=== PATIENT | female | born 1970 | race Caucasian/White ===

== ENCOUNTER 2017-05-28 01:02 | Inpatient (IN) | payer BC ==
[2017-05-28] MEDS ORDERED: methylPREDNISolone 125 MG* 2 ML VIAL IV ONE (01:28)
[2017-05-28] MEDS ORDERED: Albuterol/Ipratropium NEB.SOL* Albuterol 2.5 MG/Ipratropium 0.5 MG 3 ML INH ONE (01:28)
[2017-05-28] MEDS ORDERED: methylPREDNISolone 125 MG* 2 ML VIAL ONE (01:30)
[2017-05-28 01:44] LABS: Hematocrit 25 % (35-47); Hemoglobin 7.2 g/dl (12.0-16.0); Mean Corpuscular HGB Conc 29 g/dl (31-36); Mean Corpuscular Hemoglobin 17 pg (27-31); Mean Corpuscular Volume 58 fL (80-97); Mean Platelet Volume 8 um3 (7.4-10.4); Red Cell Distribution Width 20 % (10.5-15); White Blood Count 13.7 10^3/ul (3.5-10.8)
[2017-05-28 01:45] LABS: Add Diff/Slide Review? Slide Review Added; Comments Flag Yes
[2017-05-28 01:53] LABS: ALT 8 U/L (7-52); AST 13 U/L (13-39); Albumin 3.9 g/dL (3.2-5.2); Alkaline Phosphatase 60 U/L (34-104); Anion Gap 8 mmol/L (2-11); Blood Urea Nitrogen 20 mg/dL (6-24); CO2 Carbon Dioxide 21 mmol/L (22-32); Calcium 8.8 mg/dL (8.6-10.3); Chloride 108 mmol/L (101-111); Creatine Kinase 40 U/L (10-223); EGFR African American 109.6 (>60); EGFR Non-African American 85.3 (>60); Globulin 3.2 g/dL (2-4); Glucose 160 mg/dL (70-100); Magnesium 1.9 mg/dL (1.9-2.7); Potassium 3.5 mmol/L (3.5-5.0); Sodium 137 mmol/L (133-145); Total Protein 7.1 g/dL (6.4-8.9)
[2017-05-28 01:55] LABS: Troponin I 0.28 ng/mL (<0.04)
[2017-05-28 02:08] LABS: Add Path Review? YES; Hypochromasia 2+; Microcytosis 3+; Polychromasia 1+
[2017-05-28] MEDS ORDERED: Aspirin TAB* 325 MG PO ONE (02:20)
--- NOTE | 2017-05-28 02:43 | HP ---
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 Sunday she worked [employer] on 3rd floor of [facility]. On the way into the building she had to stop and rest in the Dr's lounge 2nd SOB and on the way out she had to stop and rest 3 times. After arriving at home her SOB and chest discomfort continued at rest and became associated with nausea and diphoresis prompting her to present for evaluation. She admits to becoming light-headed and woozy with standing, but denies palpitations, F/C, cough, congestion, or other issues. She had flown to [place] in April and had a "Colin horse" in her L calf lasting ~1week, but without swelling or erythema. Additionally, she has had multiple prolonged sitting events lasting >6hours over the past 6 weeks. Of note, her father passed at 43 from previously unknown CAD. She is awaiting CTA chest to r/o PE, if negative this will constitute an NSTEMI. Therefore, heparin GTT will be started now as it is TX in either case. PMedHx asthma GERD seasonal allergies Ambulatory Orders Albuterol inh POWDER (NF) [Proair Respiclick] 108 mcg IN Q4H PRN 05/28/17 Cyanocobalamin [Vitamin B-12] 1,000 mcg SL DAILY 05/28/17 Esomeprazole(NF) [NEXium(NF)] 20 mg PO DAILY 05/28/17 Fexofenadine (NF) [Galina 180 (NF)] 180 mg PO DAILY 05/28/17 Fluticasone HFA 110 mcg(NF) [Flovent HFA 110 mcg(NF)] 2 puff INH BID 05/28/17 Fluticasone NASAL * [Flonase *] 2 spray BOTH NARES DAILY 05/28/17 Allergies Latex Allergy (Verified 05/28/17 01:03) Itching Penicillins Allergy (Verified 05/28/17 01:03) Anaphylatic Shock PSurgHx wisdom teeth extraction SocHx: no tobacco or recreational drug HX, 1-2 alcoholic drinks weekly; vegetarian x years, vegan x recent months; single, no children; 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[employer]; 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 FamHx: Mother: alive, healthy, 72YO; Father: 43YO from previously unknown CAD; Siblings: only child; mGM: 91 2nd GI bleed, HX CVA & late onset CAD; mGF: 80s 2nd CKD; pGM: 80s 2nd CAD; pGF: 91 2nd AAA ROS: as above, otherwise reviewed and all were negative vitals: Vital Signs Temp 36.1 C 05/28/17 01:04 Pulse 113 05/28/17 02:42 Resp 19 05/28/17 02:42 BP 115/67 05/28/17 03:00 Pulse Ox 93 05/28/17 02:42 Intake & Output 05/27/17 05/27/17 05/28/17 11:59 23:59 11:59 Weight 108.862 kg Constitutional: NAD, normally developed, BMI 38 white female HEENM: atraumatic; sclera/conjunctiva: non-icteric/clear; hearing: clinically intact; oropharynx: clear, mucosa moist Neck: soft tissue: non-tender; thyroid: normal Pulmonary: clear to auscultation bilaterally, good aeration, no accessory muscle use CV: RR/RR, normal S1S2, no carotid bruit, no jugular venous distention, 2+ B DP/ PT, no edema Abdominal: soft, non-distended, non-tender, no rebound/guarding/rigidity, normoactive bowel sounds, no hepatosplenomegaly or masses, no costovertebral angle tenderness Musculoskeletal: general: grossly intact, no palpable tenderness, negative Cynthia 's B Integumental: normal appearance and texture of exposed skin Psychiatric orientation: AA&O to PPS affect: calm mood: pleasant eye contact: good content: reliable responses: timely insight: good Testing: Lab Results 05/28/17 05/28/17 05/28/17 Range/Units 01:25 01:25 01:25 WBC 13.7 H (3.5-10.8) 10^3/ul RBC 4.30 (4.0-5.4) 10^6/ul Hgb 7.2 L (12.0-16.0) g/dl Hct 25 L (35-47) % MCV 58 L (80-97) fL MCH 17 L (27-31) pg MCHC 29 L (31-36) g/dl RDW 20 H (10.5-15) % Plt Count 287 (150-450) 10^3/ul MPV 8 (7.4-10.4) um3 Neut % (Auto) 78.9 (38-83) % Lymph % (Auto) 13.9 L (25-47) % Swisher % (Auto) 5.6 (1-9) % Eos % (Auto) 0.9 (0-6) % Baso % (Auto) 0.7 (0-2) % Absolute Neuts (auto) 10.8 H (1.5-7.7) 10^3/ul Absolute Lymphs (auto) 1.9 (1.0-4.8) 10^3/ul Absolute Monos (auto) 0.8 (0-0.8) 10^3/ul Absolute Eos (auto) 0.1 (0-0.6) 10^3/ul Absolute Basos (auto) 0.1 (0-0.2) 10^3/ul Absolute Nucleated RBC 0.03 10^3/ul Nucleated RBC % 0.2 Normal RBC Morphology Not Reportable Polychromasia 1+ Hypochromasia 2+ Microcytosis 3+ Elliptocytes 1+ Hem Pathologist Commnt Pending INR (Anticoag Therapy) (0.89-1.11) APTT (26.0-36.3) seconds D-Dimer, Quantitative (Less Than 230) ng/mL Sodium 137 (133-145) mmol/L Potassium 3.5 (3.5-5.0) mmol/L Chloride 108 (101-111) mmol/L Carbon Dioxide 21 L (22-32) mmol/L Anion Gap 8 (2-11) mmol/L BUN 20 (6-24) mg/dL Creatinine 0.74 (0.51-0.95) mg/dL Est GFR ( Amer) 109.6 (>60) Est GFR (Non-Af Amer) 85.3 (>60) BUN/Creatinine Ratio 27.0 H (8-20) Glucose 160 H (70-100) mg/dL Lactic Acid (0.5-2.0) mmol/L Calcium 8.8 (8.6-10.3) mg/dL Magnesium 1.9 (1.9-2.7) mg/dL Total Bilirubin 0.40 (0.2-1.0) mg/dL AST 13 (13-39) U/L ALT 8 (7-52) U/L Alkaline Phosphatase 60 (34-104) U/L Total Creatine Kinase 40 (10-223) U/L Troponin I 0.28 H* (<0.04) ng/mL B-Natriuretic Peptide 401 H ( - 100) pg/mL Total Protein 7.1 (6.4-8.9) g/dL Albumin 3.9 (3.2-5.2) g/dL Globulin 3.2 (2-4) g/dL Albumin/Globulin Ratio 1.2 (1-3) TSH 2.50 (0.34-5.60) mcIU/mL Beta HCG, Quant < 0.60 mIU/mL Blood Type Antibody Screen Crossmatch 05/28/17 05/28/17 05/28/17 Range/Units 01:25 01:25 01:25 WBC (3.5-10.8) 10^3/ul RBC (4.0-5.4) 10^6/ul Hgb (12.0-16.0) g/dl Hct (35-47) % MCV (80-97) fL MCH (27-31) pg MCHC (31-36) g/dl RDW (10.5-15) % Plt Count (150-450) 10^3/ul MPV (7.4-10.4) um3 Neut % (Auto) (38-83) % Lymph % (Auto) (25-47) % Swisher % (Auto) (1-9) % Eos % (Auto) (0-6) % Baso % (Auto) (0-2) % Absolute Neuts (auto) (1.5-7.7) 10^3/ul Absolute Lymphs (auto) (1.0-4.8) 10^3/ul Absolute Monos (auto) (0-0.8) 10^3/ul Absolute Eos (auto) (0-0.6) 10^3/ul Absolute Basos (auto) (0-0.2) 10^3/ul Absolute Nucleated RBC 10^3/ul Nucleated RBC % Normal RBC Morphology Polychromasia Hypochromasia Microcytosis Elliptocytes Hem Pathologist Commnt INR (Anticoag Therapy) 1.05 (0.89-1.11) APTT 25.7 L (26.0-36.3) seconds D-Dimer, Quantitative 689 H (Less Than 230) ng/mL Sodium (133-145) mmol/L Potassium (3.5-5.0) mmol/L Chloride (101-111) mmol/L Carbon Dioxide (22-32) mmol/L Anion Gap (2-11) mmol/L BUN (6-24) mg/dL Creatinine (0.51-0.95) mg/dL Est GFR ( Amer) (>60) Est GFR (Non-Af Amer) (>60) BUN/Creatinine Ratio (8-20) Glucose (70-100) mg/dL Lactic Acid 2.1 H* (0.5-2.0) mmol/L Calcium (8.6-10.3) mg/dL Magnesium (1.9-2.7) mg/dL Total Bilirubin (0.2-1.0) mg/dL AST (13-39) U/L ALT (7-52) U/L Alkaline Phosphatase (34-104) U/L Total Creatine Kinase (10-223) U/L Troponin I (<0.04) ng/mL B-Natriuretic Peptide ( - 100) pg/mL Total Protein (6.4-8.9) g/dL Albumin (3.2-5.2) g/dL Globulin (2-4) g/dL Albumin/Globulin Ratio (1-3) TSH (0.34-5.60) mcIU/mL Beta HCG, Quant mIU/mL Blood Type O Positive Antibody Screen Negative Crossmatch See Detail ECG, personally reviewed: sinus tachycardia rate 114, Q-wave & inverted T-wave in III, ST depression & T-wave flattening V5-6 & I, T-wave inversions V3-4 & III CXR, personally reviewed: prominant central pulmonary vasulature with cephalization CTA chest, personally reviewed: moderate sized B segmental/subsegmental PEs; final report pending Impression: 46F presenting with SOB, chest pain, nausea, & sweats found to have moderate B pulmonary emboli; incidental finding of marked microcytic anemia w/o bleeding HX DIAGNOSIS & PLAN Primary B pulmonary emboli : heparin GTT due to undiagnosed source of microcytic anemia to allow for rapid reversal, if needed : convert to PO agent when appropriate; patient considering warfarin vs NOAC : supplemental oxygen : pain control PRN : BLE US in AM : ECHO in AM to evaluate R heart : supportive care marked microcytic anemia : stool occult blood negative : anemia labs : transfuse 2 units pRBCs : trend : GI consult in AM Secondary asthma : albuterol neb PRN GERD : PO omeprazole Admission Rational: inpatient ICU for moderate B pulmonary emboli & previously unknown microcytic anemia DVTp: heparin GTT Code Status: full
[2017-05-28] MEDS ORDERED: Heparin DRIP 25,000 UNITS(*) 25,000 UNITS/500 ML BAG ONE (03:30)
[2017-05-28] MEDS ORDERED: Heparin VIAL(*) 5000 UNITS/ML VIAL (FIVE THOUSAND) ONE (03:32)
[2017-05-28] MEDS: Heparin VIAL(*) 5000 UNITS/ML VIAL (FIVE THOUSAND) IV SCH ×2 (03:37→12:12)
[2017-05-28] MEDS: Heparin DRIP 25,000 UNITS(*) 25,000 UNITS/500 ML BAG IVPB SCH ×3 (03:38→20:03)
[2017-05-28] MEDS ORDERED: Iohexol 350* (CONTRAST) 500 ML MDV IV ONE (04:17)
[2017-05-28] MEDS ORDERED: oxyCODONE TAB* 5 MG TAB PO PRN (05:08)
[2017-05-28] MEDS ORDERED: Ondansetron INJ* 2 MG/ML VIAL IV PRN (05:08)
[2017-05-28] MEDS ORDERED: HYDROmorphone INJ* 2 MG/ML CARPUJECT SYRINGE IV PRN (05:08)
[2017-05-28] MEDS ORDERED: Melatonin (NF) 3 MG TAB PO PRN (05:08)
[2017-05-28] MEDS ORDERED: Albuterol 2.5 MG/3 ML NEB.SOL* (0.083%) INH PRN (05:08)
[2017-05-28] MEDS ORDERED: traMADol TAB* 50 MG PO PRN (05:13)
[2017-05-28] MEDS ORDERED: NS 0.9% 1000 ML* 1,000 ML IV SCH (05:15)
[2017-05-28 05:17] LABS: Troponin I 0.3 ng/mL (<0.04)
--- NOTE | 2017-05-28 05:18 | ED ---
Victor Manuel Renteria Rebecca, scribed for Zeke Vera on 05/28/17 at 0111 . Shortness of Breath - HPI Summary HPI Summary: Pt is a 46 y/o F who presents to ED c/o SOB. Sx began 1 week ago and have been gradually worsening, significantly worse tonight. Initially, SOB was characterized as dyspnea at exertion and upon waking up this morning, it is described as dyspnea at rest. 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 Sx aggravated by exertion, alleviated by nothing. Additionally c/o productive cough with slight sputum, chest wall pain secondary to labored breathing and nausea. Notes L calf pain described as a cramp about 1 week ago that is now resolved that began after walking around [facility] all day. Denies abdominal pain. O2 sat was between 89 and 91 upon arrival whereas last week it was 94-96. PMHx asthma. FHx CAD ( father passed at age 43). - History of Current Complaint Chief Complaint: EDShortnessOfBreath Time Seen by Provider: 05/28/17 01:10 Hx Obtained From: Patient Onset/Duration: Lasting Weeks - 1 week, Still Present Dyspnea At: Rest Aggrevating Factors: Nothing Alleviating Factors: Nothing Associated Signs & Symptoms: Cough (Productive), Chest Pain Unrelated to Cough - seocndary to labored breathing - Allergy/Home Medications Allergies/Adverse Reactions: Allergies Allergy/AdvReac Type Severity Reaction Status Date / Time Latex Allergy Itching Verified 05/28/17 01:03 Penicillins Allergy Anaphylatic Verified 05/28/17 01:03 Shock Home Medications: Home Medications Albuterol inh POWDER (NF) [Proair Respiclick] 108 mcg IN Q4H PRN 05/28/17 [ History Confirmed 05/28/17] Cyanocobalamin [Vitamin B-12] 1,000 mcg SL DAILY 05/28/17 [History Confirmed 05/06] Esomeprazole(NF) [NEXium(NF)] 20 mg PO DAILY 05/28/17 [History Confirmed ] Fexofenadine (NF) [Galina 180 (NF)] 180 mg PO DAILY 05/28/17 [History Confirmed 05/28/17] Fluticasone HFA 110 mcg(NF) [Flovent HFA 110 mcg(NF)] 2 puff INH BID 05/28/17 [ History Confirmed 05/28/17] Fluticasone NASAL * [Flonase *] 2 spray BOTH NARES DAILY 05/28/17 [History Confirmed 05/28/17] PMH/Surg Hx/FS Hx/Imm Hx Endocrine/Hematology History: Denies: Hx Anemia Respiratory History: Reports: Hx Asthma - Cancer History Hx Chemotherapy: No Hx Radiation Therapy: No Infectious Disease History: No Infectious Disease History: Reports: Traveled Outside the in Last 30 Days - [place] last month - Family History Known Family History: Positive: Cardiac Disease - father - Social History Alcohol Use: None Substance Use Type: Reports: None Smoking Status (MU): Never Smoked Tobacco Review of Systems Positive: Chest Pain - secondary to labored breathing Positive: Shortness Of Breath, Cough - productive Positive: Nausea. Negative: Abdominal Pain Positive: Other - L calf cramp - resolved All Other Systems Reviewed And Are Negative: Yes Physical Exam - Summary Physical Exam Summary: Appearance: Well appearing, no pain distress Skin: warm, dry, reflects adequate perfusion Head/face: normal Eyes: EOMI, ALEXANDRE ENT: normal Neck: supple, nontender Respiratory: CTA, breath sounds present, decreased breath sounds bilaterally Cardiovascular: tachycardic, pulses symmetrical Abdomen: nontender, soft Bowel: present Musculoskeletal: normal, strength/ROM intact Neuro: normal, sensory motor intact, A&Ox3 Triage Information Reviewed: Yes Vital Signs On Initial Exam: Initial Vitals Temp Pulse Resp BP Pulse Ox 96.9 F 114 22 144/94 90 05/28/17 01:04 05/28/17 01:04 05/28/17 01:04 05/28/17 01:04 05/28/17 01:04 Vital Signs Reviewed: Yes Diagnostics - Vital Signs Vital Signs Temp Pulse Resp BP Pulse Ox 05/28/17 01:04 96.9 F 114 22 144/94 90 - Laboratory Result Diagrams: 05/28/17 01:25 05/28/17 04:45 Lab Statement: Any lab studies that have been ordered have been reviewed, and results considered in the medical decision making process. - Radiology CXR Xray Interpretation: No Acute Changes Radiology Interpretation Completed By: ED Physician - CT Chest/Thorax CTA CT Interpretation: Positive (See Comments) - Positive for multiple bilateral acute pulmonary emboli involving vessels to all lobes. There is also involvement of the distal right and left pulmonary arteries but no saddle emboli are identified. There is patchy infiltrate in the posterior aspect of the left upper lobe. The remainder of the lungs are clear. The right heart is somewhat enlarged possibly indicating right heart strain. Negative for thoracic aortic aneurysm or dissection. ED physician reviewed radiology report and agrees. CT Interpretation Completed By: Radiologist - EKG 0205 Cardiac Rate: Tachycardia - 114 bpm EKG Rhythm: Sinus Tachycardia ST Segment: Non-Specific - Non-specific ST T wave changes Course/Dx - Course Assessment/Plan: Pt is a 46 y/o F who presents to ED c/o SOB. Sx began 1 week ago and have been gradually worsening, significantly worse tonight. Initially, SOB was characterized as dyspnea at exertion and upon waking up this morning, it is described as dyspnea at rest. 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 Sx aggravated by exertion, alleviated by nothing. Additionally c/o productive cough with slight sputum, chest wall pain secondary to labored breathing and nausea. Notes L calf pain described as a cramp about 1 week ago that is now resolved that began after walking around [facility] all day. Denies abdominal pain. O2 sat was between 89 and 91 upon arrival whereas last week it was 94-96. PMHx asthma. FHx CAD (father passed at age 43). CXR reveals no acute findings, as read by ED physician. EKG is sinus tachy with non-specific ST T wave changes. CTA Chest/ Thorax reveals multiple pulmonary emboli. D-Dimer of 689, lactic acid of 2.1, troponin of 0.28, Hgb of 7.2. In the ED course, pt received Solu-Medrol, ASA and Duoneb Tx. Discussed care of pt with Dr. Otoole who accepts pt for admission. Pt will be admitted with Dx of pulmonary embolism, symptomatic anemia , ACS, dyspnea and asthma. CC time of 30 minutes. Allergies noted. Elevated BP noted. - Diagnoses Provider Diagnoses: Symptomatic anemia, Dyspnea, ACS (acute coronary syndrome), Asthma, Pulmonary embolism - Physician Notifications Discussed Care of Patient With: Alin Otoole Time Discussed With Above Provider: 02:17 Instructed by Provider To: Other - Advised a Chest CTA and accepted the pt. Will evaluate her in the ED. - Critical Care Time Critical Care Time: 30-74 min - 30 minutes Discharge - Discharge Plan Condition: Stable Disposition: ADMITTED TO [facility] The documentation as recorded by the Victor Manuel pettit Rebecca accurately reflects the service I personally performed and the decisions made by , Zkee Vera.
[2017-05-28 05:40] LABS: Iron 15 ug/dL (50-212); Total Iron Binding Capacity 493 mcg/dL (250-450); Transferrin 352 mg/dL (203-362)
[2017-05-28 05:48] LABS: Corrected Retic Count 1.1 % (0.5-1.5); Immature Retic Fraction 0.62
[2017-05-28 05:49] LABS: Comments Flag Yes
[2017-05-28 06:01] LABS: Ferritin < 10.0 ng/mL (11-307)
[2017-05-28] MEDS: Omeprazole CAP* 20 MG PO SCH (06:01)
[2017-05-28 06:05] LABS: Folate 17.48 ng/mL (>3.99)
[2017-05-28 06:06] LABS: Vitamin B12 568 pg/mL (180-914)
--- NOTE | 2017-05-28 07:55 | RAD ---
HISTORY: Shortness of breath COMPARISONS: None VIEWS: 1: frontal portable view of the chest at 2:18 PM FINDINGS: LINES AND TUBES: None. CARDIOMEDIASTINAL SILHOUETTE: The cardiomediastinal silhouette is normal for portable technique. PLEURA: The costophrenic angles are sharp. No pleural abnormalities are noted. LUNG PARENCHYMA: The lungs are clear. ABDOMEN: The upper abdomen is clear. There is no subphrenic gas. BONES AND SOFT TISSUES: No bone or soft tissue abnormalities are noted. IMPRESSION: NO ACTIVE CARDIOPULMONARY DISEASE.
--- NOTE | 2017-05-28 08:05 | RAD ---
INDICATION: Chest pain and shortness of breath with an elevated d-dimer COMPARISON: None TECHNIQUE: Axial source images were acquired following the administration of 84 mL Omnipaque [address] angiographic technique. Coronal and sagittal reconstructed images were constructed and reviewed. FINDINGS: Involving all lobar branches and majority segmental branches there are both obstructing and nonobstructing thrombi consistent with pulmonary embolus. On the right the pulmonary embolism extends as far as the right mainstem pulmonary artery. There are no focal infiltrates or effusions. There are no pulmonary parenchymal masses. Relative widening of the right ventricle could indicate a degree of right heart strain in the presence of multifocal pulmonary emboli. There is no mediastinal, hilar, or axillary lymphadenopathy. Degenerative changes of the thoracic spine includes loss of intervertebral disc height with vacuum disc phenomenon and endplate sclerosis at T9/T10. Limited views of the upper abdomen show no abnormalities. IMPRESSION: Bilateral multi lobar pulmonary embolism extending to the mainstem pulmonary artery on the right. Widening of the right ventricle in this setting could be secondary to right heart strain.
--- NOTE | 2017-05-28 09:13 | PN ---
Critical Care Services: [facility] progress note 05/28/17 Pt seen and examined at bedside. Denies SOB, chest discomfort is improved. 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 CTA chest positive for b/l PE with filling defects in Rt main stem and to subsegmental level and lt pulm artery. She was also noted to have elevated troponins. She was started on heparin drip. She was also noted to have microcytic anemia with no active bleeding. 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, No tobacco or recreational drug use, 1-2 alcoholic drinks weekly FamHx: Mother: alive, healthy, Father: due to CAD at age 43 ROS: as above, otherwise reviewed and all were negative Vital Signs: Temp Pulse Resp BP SpO2 FiO2 98.4 F 99 22 135/90 93 05/28/17 04:14 05/28/17 08:00 05/28/17 08:00 05/28/17 08:00 05/28/17 08:00 Physical Exam: O/E: Gen: Pt in NAD HEENT: PERRLA, sclera anicteric,oropharynx: mucosa moist Neck: supple, non-tender; thyroid: normal Pulmonary: clear to auscultation bilaterally, good aeration, no accessory muscle use CV: RRR, normal S1S2, no carotid bruit, no jugular venous distention Abdominal: Soft, non-distended, non-tender, normoactive bowel sounds Musculoskeletal: general: grossly intact, no palpable tenderness, negative Cynthia 's B Integumental: normal appearance and texture of exposed skin Psychiatric : Good affect Fluid Balance (Past 24 Hours): I= 500 O= 500 Net 0 Intake & Output 05/26/17 05/27/17 05/28/17 05/29/17 06:59 06:59 06:59 06:59 Output Total 500 Balance -500 Weight 238 lb 1.588 oz Output: Urine 500 Labs: Laboratory Results - last 24 hr 05/28/17 05/28/17 05/28/17 04:45 05:30 05:30 RBC (Retic) 4.18 L HCT (Retic) 24 L Retic Count, Calc 2.0 H Corrected Retic Count 1.1 Retic Shift Factor 2.0 Retic Production Index 0.60 Immature Retic Fraction 0.62 Mean Retic Volume 93.0 BUN 17 Lactic Acid 1.7 Troponin I 0.30 H* Studies: CTA chest was personally reviewed, B/l filling defects involving Rt main stem, segmental and lobar branches on both sides, no pulm infarct noted ECHO: pending EKG: Sinus tachycardia with T- wave changes in inferior leads Venous duplex- pending Impression: 46 y o f with acute b/l PE with significant clot burden and possible Rt heart strain, hemodynamically stable on heparin drip. 1. Acute PE likely provoked from recent air travel 2. Microcytic anemia, unknown etiology 3.Tachycardia due to rt heart strain from PE 4. Elevated troponins secondary tot PE 5. Elevated lactate, normalized Plan: 1. CVS: Acute PE with significant clot burden and rt heart strain. Will obtain ECHO, no need for tPA at this time. Given anemia, started on heparin drip, will rpt PTT at 10:30, will decide on long term care phlebotomist anticoagulation. f/u PTT. Monitor cardiac status closely in ICU. Elevated troponins and EKG changes sec to PE. Will administer tPA if becomes unstable hemodynamically 2. Resp: Not in resp distress. Will adminsiter high flow if any distress 3. Haem: Acute PE likely provoked from recent air travel, in need of anticoagulation for 6 months. c/w heparin and will decide regarding long term care phlebotomist anticoagulation in conjunction with pt. Anemia- microcytic, unclear etiology. Might benefit from haem eval as out pt 4.Endo: No issues 5. Musculo skeletal: Pt reported having discomfort in LE recently after travel. Will obtain LE dopplers 6. GI: c/w regular diet, GI consult today for w/u of anemia, stool guiac negative 7. Renal: Voiding spontaneously, no electrolyte abnormalities 8. Psycho social: Pt with good understanding of disease process. Updated on tests and treatment indication Supporive care and preventive care as ordered DVTpx: On heparin IV for PE Critical Care Time: 30 min
--- NOTE | 2017-05-28 09:42 | RAD ---
INDICATION: Pain and swelling. Pulmonary embolus. COMPARISON: CTA chest May 28, 2017 TECHNIQUE: Duplex interrogation of the Lowerextremity was performed. FINDINGS: Deep veins: The common femoral, great saphenous, profunda femoris, proximal, mid, and distal deep femoral, popliteal, posterior tibial, and peroneal veins were interrogated. There is thrombus in the left posterior tibial and peroneal veins. The remaining deep venous structures demonstrate normal compressibility, augmentation, and phasic flow. Superficial veins: There are no findings of superficial thrombophlebitis. Popliteal fossa:There is no evidence of a popliteal cyst. Soft tissues:There are no soft tissue abnormalities. IMPRESSION: ACUTE, LEFT-SIDED, TIBIAL DEEP VENOUS THROMBOSIS
[2017-05-28] MEDS: Metoprolol Tartrate TAB* 25 MG PO SCH ×2 (10:16→21:05)
[2017-05-28] MEDS: Docusate CAP* 100 MG PO SCH ×2 (10:16→21:05)
--- NOTE | 2017-05-28 10:26 | ECHO ---
Patient: KEIKO WEN [facility] Rec#: [id number] : 1970 Date: 05/28/2017 Age: 46y Height: 167.6 cm / 66.0 in Weight: 108.9 kg / 240.0 lbs Sex: F BSA: 2.2 Room#: ICU 10 Admit Date#: 05/28/2017 Type: Inpatient Referring: Alin Otoole MD Reading: Ba Dodge MD Senior Software Tester: Blaire Ribeiro RN RDCS CC: Christi Ferris NP Transthoracic Echocardiogram Indication: Bilateral PE, elevated troponin BP: 124/89 HR: 99 Rhythm: NSR Findings History: Asthma, GERD Technical Comments: The study quality is fair. The study is technically limited due to patient body habitus. Completed at 0845. Left Ventricle: The left ventricular chamber size is normal. Mild to moderate concentric left ventricular hypertrophy is observed. Global left ventricular wall motion and contractility are within normal limits. There is normal left ventricular systolic function. The estimated ejection fraction is 55-60%. There is septal flattening of the interventricular septum consistent with right ventricular volume or pressure overload. The assessment of diastolic function is non-diagnostic. The patient was unable to perform a Valsalva maneuver. Left Atrium: The left atrial chamber size is normal. Right Ventricle: The right ventricle is moderately dilated. The right ventricular global systolic function is moderately reduced. Right Atrium: The right atrium is mild to moderately dilated. Aortic Valve: The aortic valve is trileaflet. The aortic valve leaflets are mildly thickened. There is no evidence of aortic regurgitation. There is no evidence of aortic stenosis. Mitral Valve: The mitral valve leaflets are mildly thickened. There is no evidence of mitral regurgitation. There is no evidence of mitral stenosis. Tricuspid Valve: The tricuspid valve leaflets are normal. There is mild to moderate tricuspid regurgitation. There is evidence of moderate pulmonary hypertension. There is no tricuspid stenosis. Pulmonic Valve: The pulmonic valve appears normal. There is mild pulmonic regurgitation. There is no pulmonic stenosis. Pericardium: There is no significant pericardial effusion. A pericardial fat pad is visualized. Aorta: There is mild dilatation of the ascending aorta. There is no dilatation of the aortic arch. There is no dilation of the aortic root. Pulmonary Artery: The main pulmonary artery is not well visualized. Venous: The inferior vena cava is dilated. There is a greater than 50% respiratory change in the inferior vena cava dimension. Summary: There was not any prior study for comparison. Conclusions The left ventricular chamber size is normal. Mild to moderate concentric left ventricular hypertrophy is observed. There is normal left ventricular systolic function. The estimated ejection fraction is 55-60%. There is septal flattening of the interventricular septum consistent with right ventricular volume or pressure overload. The assessment of diastolic function is non-diagnostic. The right atrium is mild to moderately dilated. There is mild to moderate tricuspid regurgitation. There is evidence of moderate pulmonary hypertension. There is mild pulmonic regurgitation. There is mild dilatation of the ascending aorta. Measurements Name Value Normal Range RVIDd (AP) 2D 3.9 cm (0.9 - 2.6) RVDdMajor (2D) 5.4 cm (2.2 - 4.4) RAd ISD 4CH 6 cm (3.4 - 4.9) RA (A4C)W 4.4 cm (2.9 - 4.6) IVSd (2D) 1.4 cm (0.6 - 1) LVPWd (2D) 1.2 cm (0.6 - 1) LVIDd (2D) 4.2 cm (3.6 - 5.4) LVIDs (2D) 3.2 cm - LV FS (2D) 24 % (25 - 45) Aortic Annulus 2.3 cm (1.4 - 2.6) Ao root diameter (2D) 3.4 cm (2.1 - 3.5) Ascending Ao 3.8 cm (2.1 - 3.4) Aortic arch 2.8 cm (1.8 - 3.4) LA dimension (AP) 2D 3.3 cm (2.3 - 3.8) LAd ISD 4CH 4.3 cm (2.9 - 5.3) LA ISD 4CH W 3.7 cm (2.5 - 4.5) Name Value Normal Range LV septal e' Vmax 0.08 m/sec - LV lateral e' Vmax 0.05 m/sec - Name Value Normal Range AV Vmax 1.4 m/sec - AV VTI 21 cm - AV peak gradient 8 mmHg - AV mean gradient 4.3 mmHg - LVOT Vmax 1.1 m/sec - LVOT VTI 15.5 cm - LVOT peak gradient 4.7 mmHg - LVOT mean gradient 2.2 mmHg - JINNY Vmax 0.8 m/sec - Name Value Normal Range TR Vmax 3.3 m/sec - TR peak gradient 44 mmHg - RAP 8 mmHg - RVSP 52 mmHg - IVC diameter 2.6 cm - Name Value Normal Range PV Vmax 0.8 m/sec -
[2017-05-28 18:20] LABS: Hematocrit 29 % (35-47); Hemoglobin 8.8 g/dl (12.0-16.0)
[2017-05-28 18:25] LABS: Comments Flag Yes
[2017-05-29] MEDS: Acetaminophen TAB* 325 MG PO PRN ×3 (00:25→22:24)
[2017-05-29 05:08] LABS: Hematocrit 27 % (35-47); Hemoglobin 8.3 g/dl (12.0-16.0); Mean Corpuscular HGB Conc 30 g/dl (31-36); Mean Corpuscular Hemoglobin 19 pg (27-31); Mean Platelet Volume 8 um3 (7.4-10.4); Red Blood Count 4.45 10^6/ul (4.0-5.4); Red Cell Distribution Width 25 % (10.5-15); White Blood Count 17.6 10^3/ul (3.5-10.8)
[2017-05-29 05:11] LABS: Add Diff/Slide Review? Slide Review Added; Comments Flag Yes; Mean Corpuscular Volume 62 fL (80-97)
[2017-05-29 06:03] LABS: Hypochromasia 2+; Microcytosis 3+
[2017-05-29 06:04] LABS: Macrocytosis 1+; Polychromasia 1+
[2017-05-29] MEDS: Omeprazole CAP* 20 MG PO SCH (06:10)
[2017-05-29] MEDS: Docusate CAP* 100 MG PO SCH ×2 (09:00→20:31)
[2017-05-29] MEDS: Metoprolol Tartrate TAB* 25 MG PO SCH (09:00)
[2017-05-29] MEDS: Heparin DRIP 25,000 UNITS(*) 25,000 UNITS/500 ML BAG IVPB SCH (10:58)
--- NOTE | 2017-05-29 12:06 | PN ---
Progress Note - Progress Note Date of Service: 05/29/17 Note: Progress Note Critical Care 24 hour events/significant events: -no overnight events; admitted 05/28 for SOB and new PE -on heparin iv -less tachycardic, feels less sob now, in bed, on 4L nc, rr 16-19 Tele: NSR Vitals: Vital Signs Temp 97.8 F 05/29/17 11:54 Pulse 80 05/29/17 09:00 Resp 16 05/29/17 09:00 BP 125/79 05/29/17 07:30 Pulse Ox 96 05/29/17 09:00 Intake & Output 05/28/17 05/29/17 05/29/17 18:59 06:59 18:59 Intake Total 3059 773 120 Output Total 3650 900 Balance -591 -127 120 Weight 241 lb 2.971 oz Intake: IV Fluids 21 NS and PRBC 21 IVPB 589 NS and PRBC 589 Medicated IV 279 523 Heparin 279 523 Oral 2170 250 120 Output: Urine 900 Santizo 3650 Other: # Voids 1 O2/Vent: 4L NC Infusions: heparin iv Medications: Acetaminophen (Tylenol Tab*) 650 mg PO Q6H PRN PRN Reason: FEVER/PAIN Last Admin: 05/29/17 09:57 Dose: 650 mg Albuterol (Ventolin 2.5 Mg/3 Ml Neb.Jessica*) 2.5 mg INH Q2H PRN PRN Reason: SOB/WHEEZING Docusate Sodium (Colace Cap*) 200 mg PO BID [facility] Last Admin: 05/29/17 09:00 Dose: Not Given Heparin Sodium (Porcine) (Heparin Vial(*)) 0 units IV .PER PROTOCOL [place] PRN Reason: Protocol Last Admin: 05/28/17 12:12 Dose: 5,900 units Hydromorphone HCl (Dilaudid Inj*) 1 mg IV Q4H PRN PRN Reason: SEVERE PAIN Heparin Sodium/Dextrose (Heparin Drip 25,000 Units(*)) 25,000 units in 500 mls @ 0 mls/hr IVPB .PER RATE [place]; Per Protocol PRN Reason: Protocol Last Admin: 05/29/17 10:58 Dose: 34 mls/hr Sodium Chloride (Ns 0.9% 1000 Ml*) 1,000 mls @ 100 mls/hr IV PER RATE [facility] Melatonin (Melatonin (Nf)) 3 mg PO BEDTIME PRN; Protocol PRN Reason: Sleep Metoprolol Tartrate (Lopressor Tab*) 12.5 mg PO BID [facility] Last Admin: 05/29/17 09:00 Dose: Not Given Omeprazole (Prilosec Cap*) 20 mg PO DAILY@0600 [facility] Last Admin: 05/29/17 06:10 Dose: 20 mg Ondansetron HCl (Zofran Inj*) 4 mg IV Q6H PRN PRN Reason: NAUSEA Oxycodone HCl (Roxycodone Tab*) 5 mg PO Q4H PRN PRN Reason: PAIN Thymol/Menthol (Alkalol (Nf)) 2 dose NASAL BID [facility] PRN Reason: Protocol Tramadol HCl (Ultram*) 50 mg PO Q6H PRN PRN Reason: PAIN Physical Exam: General: awake, alert, no distress, no diaphoresis Head: normocephalic, atraumatic HEENT: +pallor, no icterus, moist mucous membranes Neck: soft, supple, no jvd, no stridor CVS: normal rate, normal rhythm, no murmur Resp: bilateral air entry, no rhales, no wheeze, no rhonchi, no acc muscle use Abdomen: soft, nontender, nondistended, bowel sounds present Ext: pulses+, warm, no edema Skin: intact, no breakdown, no dryness Neuro: awake, alert, orientedx3, moving all extremities, no gross focal deficit Labs: Laboratory Results - last 24 hr 05/28/17 05/28/17 05/28/17 01:25 18:10 18:10 WBC RBC Hgb 8.8 L Hct 29 L MCV MCH MCHC RDW Plt Count MPV Neut % (Auto) Lymph % (Auto) Humphreys % (Auto) Eos % (Auto) Baso % (Auto) Absolute Neuts (auto) Absolute Lymphs (auto) Absolute Monos (auto) Absolute Eos (auto) Absolute Basos (auto) Absolute Nucleated RBC Nucleated RBC % Normal RBC Morphology Polychromasia Hypochromasia Microcytosis Macrocytosis Hem Pathologist Commnt APTT 65.3 H 05/29/17 05/29/17 00:05 05:00 WBC 17.6 H RBC 4.45 Hgb 8.3 L Hct 27 L MCV 62 L MCH 19 L MCHC 30 L RDW 25 H Plt Count 272 MPV 8 Neut % (Auto) 73.4 Lymph % (Auto) 19.3 L Humphreys % (Auto) 6.7 Eos % (Auto) 0.2 Baso % (Auto) 0.4 Absolute Neuts (auto) 12.9 H Absolute Lymphs (auto) 3.4 Absolute Monos (auto) 1.2 H Absolute Eos (auto) 0 Absolute Basos (auto) 0.1 Absolute Nucleated RBC 0 Nucleated RBC % 0 Normal RBC Morphology Not Reportable Polychromasia 1+ Hypochromasia 2+ Microcytosis 3+ Macrocytosis 1+ Hem Pathologist Commnt APTT 54.6 H Imagin/9 cta - bilateral pulm emboli+ R>L echo 05/28 - mod RV systolic dysfunction, normal LV function, noted flatended interventricular septum 2/2 to acute pressure/volume overload Assessment: 46y F w/pmhx of asthma, gerd; presents with dyspnea on exertion and chest pressure, progressive dyspnea for 1 week. 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 Had left leg pain intermittently also. -Acute submassive Bilateraly Pulmonary Emboli -Acute RV systolic dysfunction 2/2 to acute PE/pressure overload -Acute Hypoxic Respiratory Failure, improving -Acute Left leg DVT -Iron deficiency anemia Plan: Neuro- stable CVS- less tachy, BP stable. s/p 2 unit prbc yesterday. hg 7.2->8.8->8.3. fobt neg. d/c metoprolol. on IV heparin infusion, therap ptt. no IVF. Noted RV systolic dysfunction/dilatation on ECHO, likely from acute PE and RV strain. hemodyn stable otherwise. no tPA given. Resp- on NC 4L, no resp distress. wean down NC to keep sat >92%, ambulate and observe O2 sats. IV heparin for PE. albuterol prn. ID- wbc 17, afebrile. likely reactive. no abx indicated. cont to monitor. GI- fobt neg. no history of GI bleeding. PPI po. Will obtain GI consult for further evaluation. tolerating po diet. Renal- normal Cr. K okay, no acidosis. Heme- hg 8.3 now, after 2 units. Iron panel shows iron def. B12 and folate normal. Heme consult to evaluate further. GI consult. plt okay. given aspirin x1 in ER, discontinue further Endo- tsh okay. Musculsk- ambulate as tolerated Wounds- none DVT prophylaxis: no LE compression boots GI prophylaxis: ppi Central Line: no Arterial Line: no Santizo Cathetor: no Disposition: hemodyn stable, resp status stable. discussed with patient and stable for telemetry floor with continued IV heparin. Code Status: full code Jae Martinez MD Swing Type Lathe Operator (Electronically Signed)
[2017-05-29] MEDS: WASH NASAL SCH ×2 (12:56→20:31)
[2017-05-29] MEDS: Saline NASAL SPRAY 0.65%* BTL BOTH NARES PRN (13:01)
[2017-05-29] MEDS ORDERED: NS 0.9% 1000 ML* 1,000 ML IV SCH (13:32)
[2017-05-29] MEDS: Heparin VIAL(*) 5000 UNITS/ML VIAL (FIVE THOUSAND) IV SCH (14:00)
--- NOTE | 2017-05-29 16:50 | PN ---
Progress Note - Progress Note Date of Service: 05/29/17 - Pulm f/u note Note: Pt seen and examined at bedside. Reports improvement in breathing. Feeling much better today. No new complaints. Active Medications Generic Name Dose Route Start Last Admin Trade Name Freq PRN Reason Stop Dose Admin Acetaminophen 650 mg 05/28/17 05:08 05/29/17 09:57 Tylenol Tab* PO 650 mg Q6H PRN Administration FEVER/PAIN Albuterol 2.5 mg 05/28/17 05:08 Ventolin 2.5 Mg/3 Ml Neb.Jessica* INH Q2H PRN SOB/WHEEZING Docusate Sodium 200 mg 05/28/17 09:00 05/29/17 09:00 Colace Cap* PO Not Given BID [facility] Heparin Sodium (Porcine) 0 units 05/28/17 04:00 05/29/17 14:00 Heparin Vial(*) IV 3,150 units .PER PROTOCOL [facility] Administration Protocol Hydromorphone HCl 1 mg 05/28/17 05:08 Dilaudid Inj* IV Q4H PRN SEVERE PAIN Heparin Sodium/Dextrose 25,000 units in 500 mls @ 0 mls/hr 05/28/17 03:30 06/05 10:58 Heparin Drip 25,000 Units(*) IVPB 34 mls/hr .PER RATE [facility] Administration Protocol Per Protocol Melatonin 3 mg 05/28/17 05:08 Melatonin (Nf) PO BEDTIME PRN Sleep Protocol Omeprazole 20 mg 05/28/17 06:00 05/29/17 06:10 Prilosec Cap* PO 20 mg DAILY@0600 [facility] Administration Ondansetron HCl 4 mg 05/28/17 05:08 Zofran Inj* IV Q6H PRN NAUSEA Oxycodone HCl 5 mg 05/28/17 05:08 Roxycodone Tab* PO Q4H PRN PAIN Sodium Chloride 1 spray 05/29/17 11:28 05/29/17 13:01 Sodium Chloride 0.65% Nasal [place]* BOTH NARES 1 spray Q4H PRN Administration CONGESTION Thymol/Menthol 2 dose 05/29/17 10:00 05/29/17 12:56 Alkalol (Nf) NASAL Not Given BID [facility] Protocol Tramadol HCl 50 mg 05/28/17 05:13 Ultram* PO Q6H PRN PAIN Vital Signs Temp Pulse Resp BP Pulse Ox 98.4 F 82 20 122/74 98 05/29/17 14:45 05/29/17 14:45 05/29/17 15:56 05/29/17 14:45 05/29/17 14:45 O/E: Pt in NAD HEENT: PERRLA, no JVD Lungs: Clear to asucultation b/l CVS: S1, S2+ Abd: Soft, BS+ Ext: Normal ROM Laboratory Results - last 24 hr 05/28/17 05/28/17 05/29/17 18:10 18:10 00:05 WBC RBC Hgb 8.8 L Hct 29 L MCV MCH MCHC RDW Plt Count MPV Neut % (Auto) Lymph % (Auto) [place] % (Auto) Eos % (Auto) Baso % (Auto) Absolute Neuts (auto) Absolute Lymphs (auto) Absolute Monos (auto) Absolute Eos (auto) Absolute Basos (auto) Absolute Nucleated RBC Nucleated RBC % Normal RBC Morphology Polychromasia Hypochromasia Microcytosis Macrocytosis APTT 65.3 H 54.6 H 05/29/17 05/29/17 05:00 12:20 WBC 17.6 H RBC 4.45 Hgb 8.3 L Hct 27 L MCV 62 L MCH 19 L MCHC 30 L RDW 25 H Plt Count 272 MPV 8 Neut % (Auto) 73.4 Lymph % (Auto) 19.3 L Crawford % (Auto) 6.7 Eos % (Auto) 0.2 Baso % (Auto) 0.4 Absolute Neuts (auto) 12.9 H Absolute Lymphs (auto) 3.4 Absolute Monos (auto) 1.2 H Absolute Eos (auto) 0 Absolute Basos (auto) 0.1 Absolute Nucleated RBC 0 Nucleated RBC % 0 Normal RBC Morphology Not Reportable Polychromasia 1+ Hypochromasia 2+ Microcytosis 3+ Macrocytosis 1+ APTT 49.5 H I/R: Dr San was admitted with acute PE and DVT, currently on heparin drip, levels adjusted as per PTT Hemodynamically stable Had Rt heeart strain on ECHO Awaiting hematology evaluation with Dr Deluca regarding plan for prison anticoagulation Iron def anemia s/p 2 units pRBC, H&H stable at 8 ? GI bleed versus nutritional cause of anemia c/w GERD therapy
--- NOTE | 2017-05-29 22:03 | CONS ---
GASTROENTEROLOGY CONSULT: DATE: 05/29/17 CONSULTING PHYSICIAN: Laura Deluca; Christi Ferris NP REASON FOR CONSULTATION: Microcytic anemia in a woman admitted with bilateral pulmonary emboli. 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 CTA showed bilateral pulmonary emboli. She has a history of extended travel including a flight from [facility] to [place] to [place] back to [place] and several long drives on top of this. She is not on any hormonal treatment. She has never had any prior blood clots. Grandparents had blood clots in their 80s, though the details are unclear. She does not have any current active gastrointestinal symptoms. She does take Nexium [id number] for GERD and has probably been on that for more than five years. It was preceeded by Zegerid, and before that Prevacid sporadically. 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 Her menses are three days heavy, seven days total. She has never been on iron supplements and it turns out looking in the old database and the current database she has never had a CBC while living here in [place]. She is a vegetarian for over 15 years. She donated blood once, but fainted and did not return. She takes Advil rarely for headaches. Her appetite is good. Weight is steady, creeping up and bowel habit regular without any signs of blood. PAST MEDICAL HISTORY: 1. Obesity. 2. Asthma. 3. Dyslipidemia. 4. GERD - on chronic Nexium. 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 She is unmarried and has no children. REVIEW OF SYSTEMS: No history of dysphagia, vomiting, past ulcers, overt GI bleeding, any surgery, rash, migraines, seizures, hepatitis, recent falls or fractures. PHYSICAL EXAMINATION: She is a pleasant young woman in no distress. HEENT exam is unremarkable. There is no icterus. She has no adenopathy. Breath sounds are diminished. The abdomen is symmetric, mildly obese with normal bowel sounds, soft. Rectal deferred. She had a heme-negative stool earlier today. Extremities showed no edema. IMAGING: CTA showed bilateral pulmonary emboli. Venous Doppler study did show any clots in leg veins. 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 The combination of vegetarian diet, longstanding PPI use and fairly generous menstrual losses are all internally consistent, and fully capable of causing her severe iron-depleted presentation. At the moment her gastroesophageal reflux disease is well suppressed and as long as there are no other unexplained GI symptoms, it would seem appropriate to treat and stabilize the pulmonary embolism for some weeks before considering any workup. If she is consistently heme negative and responds smoothly to low dose iron supplementation (iron containing multivitamin b.i.d. for instance), then an endoscopic workup may not be needed. On the other hand to eliminate all uncertainty, upper endoscopy and colonoscopy could be done down the road when Hg is over 10 to maximize the risk / benefit. [id number]/[facility] #: [id number] KIZZY
[2017-05-30] MEDS: Heparin DRIP 25,000 UNITS(*) 25,000 UNITS/500 ML BAG IVPB SCH ×2 (02:27→16:26)
[2017-05-30 05:52] LABS: Hematocrit 27 % (35-47); Hemoglobin 8.2 g/dl (12.0-16.0); Mean Corpuscular HGB Conc 30 g/dl (31-36); Mean Corpuscular Hemoglobin 19 pg (27-31); Mean Corpuscular Volume 62 fL (80-97); Mean Platelet Volume 8 um3 (7.4-10.4); Red Blood Count 4.35 10^6/ul (4.0-5.4); Red Cell Distribution Width 25 % (10.5-15); White Blood Count 11.6 10^3/ul (3.5-10.8)
[2017-05-30] MEDS: Omeprazole CAP* 20 MG PO SCH (05:52)
[2017-05-30 05:53] LABS: Comments Flag Yes
[2017-05-30] MEDS: Saline NASAL SPRAY 0.65%* BTL BOTH NARES PRN ×2 (05:53→13:00)
[2017-05-30 06:07] LABS: BUN/Creatinine Ratio 22.4 (8-20); Calcium 8.4 mg/dL (8.6-10.3); EGFR Non-African American 95.6 (>60); Potassium 3.8 mmol/L (3.5-5.0)
[2017-05-30] MEDS: Docusate CAP* 100 MG PO SCH ×2 (07:54→19:30)
[2017-05-30] MEDS: WASH NASAL SCH ×2 (07:54→19:31)
[2017-05-30] MEDS ORDERED: Fluticasone NASAL SPRAY 50MCG* 16 gm SPRAY BTL BOTH NARES SCH (10:00)
[2017-05-30] MEDS ORDERED: Fluticasone HFA 110 mcg(NF) MDI INH SCH (10:00)
[2017-05-30] MEDS ORDERED: Albuterol HFA INHALER* 8 gm MDI INH PRN (10:49)
[2017-05-30] MEDS: Mometasone 220 MCG MDI INH SCH (11:42)
[2017-05-30] MEDS: Acetaminophen TAB* 325 MG PO PRN ×2 (14:08→20:52)
--- NOTE | 2017-05-30 17:51 | PN ---
Subjective Date of Service: 05/30/17 Interval History: No overnight events. Feels better this morning, able to walk to the bathroom but has not walked further than that. Still on 1.5L O2. No pleuritic chest pain, no orthopnea, no hypotension, no fevers. Family History: Unchanged from Admission Social History: Unchanged from Admission Past Medical History: Unchanged from Admission Objective Active Medications: Acetaminophen (Tylenol Tab*) 650 mg PO Q6H PRN PRN Reason: FEVER/PAIN Last Admin: 05/30/17 14:08 Dose: 650 mg Albuterol (Ventolin Hfa Inhaler*) 2 puff INH Q4H PRN PRN Reason: SOB/WHEEZING Docusate Sodium (Colace Cap*) 200 mg PO BID [facility] Last Admin: 05/30/17 07:54 Dose: Not Given Heparin Sodium (Porcine) (Heparin Vial(*)) 0 units IV .PER PROTOCOL [facility] PRN Reason: Protocol Last Admin: 05/29/17 14:00 Dose: 3,150 units Hydromorphone HCl (Dilaudid Inj*) 1 mg IV Q4H PRN PRN Reason: SEVERE PAIN Heparin Sodium/Dextrose (Heparin Drip 25,000 Units(*)) 25,000 units in 500 mls @ 0 mls/hr IVPB .PER RATE [facility]; Per Protocol PRN Reason: Protocol Last Admin: 05/30/17 16:26 Dose: 37 mls/hr Melatonin (Melatonin (Nf)) 3 mg PO BEDTIME PRN; Protocol PRN Reason: Sleep Mometasone Furoate (Asmanex 220 Mcg Mdi *) 2 puff INH DAILY [facility] Last Admin: 05/30/17 11:42 Dose: 2 puff Omeprazole (Prilosec Cap*) 20 mg PO DAILY@0600 [facility] Last Admin: 05/30/17 05:52 Dose: 20 mg Ondansetron HCl (Zofran Inj*) 4 mg IV Q6H PRN PRN Reason: NAUSEA Oxycodone HCl (Roxycodone Tab*) 5 mg PO Q4H PRN PRN Reason: PAIN Sodium Chloride (Sodium Chloride 0.65% Nasal [place]*) 1 spray BOTH NARES Q4H PRN PRN Reason: CONGESTION Last Admin: 05/30/17 13:00 Dose: 1 spray Thymol/Menthol (Alkalol (Nf)) 2 dose NASAL BID [facility] PRN Reason: Protocol Last Admin: 05/30/17 07:54 Dose: Not Given Tramadol HCl (Ultram*) 50 mg PO Q6H PRN PRN Reason: PAIN Vital Signs 05/29/17 05/29/17 05/29/17 20:13 22:51 23:29 Temperature 98.6 F Pulse Rate 82 Respiratory 18 20 Rate Blood Pressure 100/55 (mmHg) O2 Sat by Pulse 97 98 Oximetry 05/30/17 05/30/17 05/30/17 03:46 07:23 07:29 Temperature 98.3 F 98.3 F Pulse Rate 74 79 Respiratory 20 22 22 Rate Blood Pressure 104/57 123/74 (mmHg) O2 Sat by Pulse 97 98 Oximetry 05/30/17 05/30/17 05/30/17 08:34 11:37 11:50 Temperature 98.5 F Pulse Rate 80 81 80 Respiratory 20 24 16 Rate Blood Pressure 118/71 (mmHg) O2 Sat by Pulse 98 98 98 Oximetry 05/30/17 15:42 Temperature 98.3 F Pulse Rate 81 Respiratory 16 Rate Blood Pressure 119/62 (mmHg) O2 Sat by Pulse 95 Oximetry Oxygen Devices in Use Now: Nasal Cannula Appearance: alert, well appearing Eyes: No Scleral Icterus, PERRLA Ears/Nose/Mouth/Throat: NL Teeth, Lips, Gums, Clear Oropharnyx Neck: NL Appearance and Movements; NL JVP, Trachea Midline Respiratory: Symmetrical Chest Expansion and Respiratory Effort, Clear to Auscultation Cardiovascular: NL Sounds; No Murmurs; No JVD, RRR, No Edema Abdominal: NL Sounds; No Tenderness; No Distention, No Hepatosplenomegaly Lymphatic: No Cervical Adenopathy Skin: No Rash or Ulcers Neurological: Alert and Oriented x 3 Result Diagrams: 05/30/17 05:39 05/30/17 05:39 Microbiology and Other Data: Microbiology 05/28/17 06:00 Nasal Screen MRSA (PCR)(TEREZA) - Final Nasal Mrsa Negative Assess/Plan/Problems-Billing Assessment: 1. Acute Bilateral PE with RV strain At this time, etiology is thought to be most likely related to long travel recently. She was evaluated by pulmonology, and tpa was decided against since she was hemodynamically stable and has continued to be. She is therapeutic on heparin at this time, awaiting evaluation by Dr. Deluca for further discussion about therapeutic anticoagulation in setting of iron deficiency anemia. I am comfortable transitioning her to a NOAC, but will await their discussion. 2. Iron deficiency anemia received 2U PRBCs on this admission; should be on iron at discharge 3. Asthma resume flovent, no evidence of exacerbation
--- NOTE | 2017-05-30 20:08 | PN ---
Progress Note - Progress Note Date of Service: 05/30/17 - Gastroenterology Note: Patient seen and examined. No new overnight issues. She is feeling much better today. No rectal bleeding. Tolerating diet. On Heparin drip. Vital Signs: Temp Pulse Resp BP Pulse Ox 98.3 F 81 16 119/62 95 05/30/17 15:42 05/30/17 15:42 05/30/17 15:42 05/30/17 15:42 05/30/17 15:42 GENERAL: AAO X3, NAD. HEENT: MMM. CV: RRR. CTAB: CTAB. Abdomen: Obese, soft, NT/ND. Ext: No edema B/L. Laboratory Results - last 24 hr 05/29/17 05/30/17 05/30/17 22:31 05:39 05:39 WBC 11.6 H RBC 4.35 Hgb 8.2 L Hct 27 L MCV 62 L MCH 19 L MCHC 30 L RDW 25 H Plt Count 235 MPV 8 APTT 52.5 H Sodium 137 Potassium 3.8 Chloride 107 Carbon Dioxide 24 Anion Gap 6 BUN 15 Creatinine 0.67 Est GFR ( Amer) 123.0 Est GFR (Non-Af Amer) 95.6 BUN/Creatinine Ratio 22.4 H Glucose 103 H Calcium 8.4 L 05/30/17 05:39 WBC RBC Hgb Hct MCV MCH MCHC RDW Plt Count MPV APTT 68.7 H Sodium Potassium Chloride Carbon Dioxide Anion Gap BUN Creatinine Est GFR ( Amer) Est GFR (Non-Af Amer) BUN/Creatinine Ratio Glucose Calcium A/P: 46 yo female with acute PE with RV strain and iron deficiency anemia. On Heparin gtt. GI was consulted for further evaluation of anemia. 1. Iron-deficiency anemia ~Hgb is stable. ~No evidence of GI bleeding. ~S/p 2 units of prbcs on admission. ~Anemia is likely multifactorial due to heavy menses, PPI use, and vegetarian diet. ~No plans for endoscopic procedures at this time and patient is in agreement. Can be done in the future if anemia worsens or develops GI bleeding. ~Continue to monitor Hgb. ~Start iron supplementation on discharge. 2. Acute pulmonary embolism with RV strain ~On Heparin gtt. 3. GERD ~On Nexium daily. 4. Obesity Thank you for allowing us to participate in the care of your patient. Please call us with any further questions or concerns. Nevin Boyd D.O.
[2017-05-31 04:44] LABS: Hematocrit 28 % (35-47); Hemoglobin 8.6 g/dl (12.0-16.0); Mean Corpuscular HGB Conc 31 g/dl (31-36); Mean Corpuscular Hemoglobin 19 pg (27-31); Mean Platelet Volume 8 um3 (7.4-10.4); Red Blood Count 4.51 10^6/ul (4.0-5.4); White Blood Count 10.2 10^3/ul (3.5-10.8)
[2017-05-31 04:45] LABS: Comments Flag Yes
[2017-05-31 04:46] LABS: Mean Corpuscular Volume 62 fL (80-97); Red Cell Distribution Width 25 % (10.5-15)
[2017-05-31 05:00] LABS: BUN/Creatinine Ratio 14.5 (8-20); Calcium 8.7 mg/dL (8.6-10.3); EGFR African American 134.5 (>60); EGFR Non-African American 104.6 (>60); Potassium 3.5 mmol/L (3.5-5.0)
[2017-05-31] MEDS: Omeprazole CAP* 20 MG PO SCH (05:28)
[2017-05-31] MEDS: Heparin DRIP 25,000 UNITS(*) 25,000 UNITS/500 ML BAG IVPB SCH (05:32)
[2017-05-31] MEDS: Acetaminophen TAB* 325 MG PO PRN (05:32)
[2017-05-31] MEDS: Docusate CAP* 100 MG PO SCH (08:17)
[2017-05-31] MEDS: WASH NASAL SCH (08:18)
[2017-05-31] MEDS: Mometasone 220 MCG MDI INH SCH (08:47)
--- NOTE | 2017-05-31 09:10 | CONSULT ---
Consultation - Reason for Consultation Reason for Consultation: PE/DVT and anemia Ordering Provider: Ankita Morel Chief Complaint: SOB and chest pain History of Present Illness: 46 yo F w PMH of asthma and GERD with newly diagnosed DVT/PE and iron deficiency anemia. Christin spent much of April and early May traveling , with travel to [facility] and [facility], spending multiple >6 hr intervals in the seated position. About 1 week prior to admission she developed cramping left calf pain. Several days prior to admission she developed exertional dyspnea which she related to her asthma. This continued to progress to the point of needing to stop 3 times walking between her work and her car. She went home and developed some chest tightness and so came to the ER where she was noted to be hypoxic with laboratory values showing marked iron deficiency anemia (Hb 7.2, MCV in the 50s, iron saturation 3% and undetectable ferritin) with mild troponin elevation. CTA confirmed bilateral pulmonary emboli with evidence of right heart strain. She was placed on a heparin drip and given a blood transfusion and has improved markedly. She had one negative stool guaiac and was seen by GI who did not feel endoscopy or colonoscopy was warranted at this time. She notes having been a vegetarian for ~15 years. She has a degree in nutrition however and so has taken oral B12 and cooked in cast iron for a long time. She has periods every 23 days but they are relatively mild, lasting 3-7 days. She has NOT had a CBC in the last 15 years unfortunately. She does however think she has likely been anemic for some time as she reports easy fatigue at the end of the day. She denies pica. She has never had a (and therefore no miscarriages), is not on OCPs and does not smoke. She has no family history of blood clots, though does have a history of premature CAD, particularly with the loss of her father in his early 40s. She has a family history of breast cancer in two paternal aunts (one in her early 40s) and so has had mammography since her early 30s with the last being in January of 2016 ( scattered fibroglandular density, BIRADS2). Allergies/Medications Medication: Acetaminophen (Tylenol Tab*) 650 mg PO Q6H PRN PRN Reason: FEVER/PAIN Last Admin: 05/31/17 05:32 Dose: 650 mg Albuterol (Ventolin Hfa Inhaler*) 2 puff INH Q4H PRN PRN Reason: SOB/WHEEZING Docusate Sodium (Colace Cap*) 200 mg PO BID [facility] Last Admin: 05/31/17 08:17 Dose: Not Given Heparin Sodium (Porcine) (Heparin Vial(*)) 0 units IV .PER PROTOCOL OLIVER PRN Reason: Protocol Last Admin: 05/29/17 14:00 Dose: 3,150 units Hydromorphone HCl (Dilaudid Inj*) 1 mg IV Q4H PRN PRN Reason: SEVERE PAIN Heparin Sodium/Dextrose (Heparin Drip 25,000 Units(*)) 25,000 units in 500 mls @ 0 mls/hr IVPB .PER RATE OLIVER; Per Protocol PRN Reason: Protocol Last Admin: 05/31/17 05:32 Dose: 34 mls/hr Melatonin (Melatonin (Nf)) 3 mg PO BEDTIME PRN; Protocol PRN Reason: Sleep Mometasone Furoate (Asmanex 220 Mcg Mdi *) 2 puff INH DAILY [facility] Last Admin: 05/31/17 08:47 Dose: 2 puff Omeprazole (Prilosec Cap*) 20 mg PO DAILY@0600 [facility] Last Admin: 05/31/17 05:28 Dose: 20 mg Ondansetron HCl (Zofran Inj*) 4 mg IV Q6H PRN PRN Reason: NAUSEA Oxycodone HCl (Roxycodone Tab*) 5 mg PO Q4H PRN PRN Reason: PAIN Sodium Chloride (Sodium Chloride 0.65% Nasal [place]*) 1 spray BOTH NARES Q4H PRN PRN Reason: CONGESTION Last Admin: 05/30/17 13:00 Dose: 1 spray Thymol/Menthol (Alkalol (Nf)) 2 dose NASAL BID [facility] PRN Reason: Protocol Last Admin: 05/31/17 08:18 Dose: Not Given Tramadol HCl (Ultram*) 50 mg PO Q6H PRN PRN Reason: PAIN Allergies/Adverse Reactions: Allergies Allergy/AdvReac Type Severity Reaction Status Date / Time Latex Allergy Itching Verified 05/28/17 01:03 Penicillins Allergy Anaphylatic Verified 05/28/17 01:03 Shock History - Past Medical History Other History: asthma. 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 Physical Exam - Physical Exam Physical Examination: Vital Signs Temp Pulse Resp BP Pulse Ox 97.6 F 96 18 115/72 96 05/31/17 07:17 05/31/17 08:49 05/31/17 08:00 05/31/17 07:17 05/31/17 07:17 sitting up in NAD perr eomi op moist CTA bl s1 s2 nl soft nt +bs no LE edema no OWEN patient deferred breast exam A+O x 3, nonfocal neurological exam no rashes Results - Lab Results Lab Results: Laboratory Tests 05/28/17 01:25 Iron 15 L % Saturation 3 L Ferritin < 10.0 L Lactate Dehydrogenase 204 Vitamin B12 568 Folate 17.48 TSH 2.50 Laboratory Tests 05/28/17 05/28/17 05/28/17 01:25 01:25 05:30 WBC 13.7 H Hgb 7.2 L MCV 58 L Plt Count 287 Retic Count, Calc 2.0 H Total Bilirubin 0.40 AST 13 05/31/17 04:19 WBC 10.2 Hgb 8.6 L MCV 62 L Plt Count 240 Retic Count, Calc Total Bilirubin AST - Radiology Radiology Results: venous doppler: left tibial DVT CTA: bilateral PEs, evidence of RH strain Assessment and Plan Impression: 46 yo F w a provoked DVT/PE as well as iron deficiency anemia. 1)DVT/PE: We discussed this at length. She has had multiple travel episodes in the last 30 days and I certainly think her clot can be attributed to this. That being said, given her young age and the history of MIs in family members at a young age I do think it is reasonable to rule out inherited coagulopathy, more for future risk management. I will check a factor V leiden and prothrombin gene mutation at her follow up visit, and will complete her work up once off of anticoagulation. In terms of choice of anticoagulant, she has a vitamin K rich diet which is not consistent and therefore I do not think coumadin is the best option. We discussed xeralto at length. I do think this would be a good option for her, but did caution that some experience menorrhagia with this. We will need to watch this, particularly as she will not be able to take hormonal control. We discussed the need for strict compliance given the relatively short half life. I have also recommended that she get a med alert bracelet while on anticoagulation. In terms of length of coagulation, given that this was provoked but relatively marked I would recommend 6 months. She will need a prescription for 15 mg PO BID on discharge for 3 weeks and I will provide her with the 20 mg script at follow up. We also discussed the need for age appropriate cancer screening. She deferred a breast exam today but will have this next week with her primary and will have her refer for mammography, which I would recommend on an annual basis given her age and family history. 2)DEB: I suspect that this is related to menses, her vegetarianism, and possibly poor absorption from chronic PPI use. I do think it is reasonable to check 2 more stool guaiac as an outpatient. I will also confirm that a celiac panel was ordered. I have recommended starting oral iron plus vitamin C once daily, which I have started her on, but also have recommended IV iron to replete her faster. This can be done as an outpatient and will include 4 doses of feraheme given as 2 courses (2 doses 3-5 days apart, repeated 4 weeks later). My office will call to schedule this next week. We did discuss the risks and side effects of this including allergic RXN, renal insufficiency, menorrhagia and headaches. I will see her at my [facility] office on June 15 at 12 pm.
[2017-05-31] MEDS ORDERED: Ferrous Sulfate TAB* 325 MG PO SCH (10:00)
[2017-05-31] MEDS ORDERED: Ascorbic Acid TAB* 500 MG PO SCH (10:00)
[2017-05-31] MEDS ORDERED: Rivaroxaban TAB(*) 15 MG PO ONE (10:15)
[2017-05-31 10:19] LABS: HDL Cholesterol 27.2 mg/dL
[2017-05-31 13:58] VITALS: BP 118/67
--- NOTE | 2017-06-01 00:28 | DS ---
CC: Christi Ferris NP; Laura Deluca MD * DISCHARGE SUMMARY: DATE OF ADMISSION: 05/28/17 DATE OF DISCHARGE: 05/31/17 PRIMARY CARE PHYSICIAN: Christi Ferris NP PRIMARY DIAGNOSES: 1. Pulmonary embolism. 2. Iron-deficiency anemia. 3. Left-sided deep venous thrombosis. SECONDARY DIAGNOSES: Include: 1. Asthma. 2. Gastroesophageal reflux disease. 3. Seasonal allergies. 4. Elevated troponin. MEDICATIONS ON DISCHARGE: 1. Fluticasone nasal spray 2 sprays both nares daily. 2. Galina 180 mg daily. 3. Vitamin B12 of 1000 mcg sublingual daily. 4. Albuterol RespiClick 180 mcg every 4 hours as needed for shortness of breath. 5. Fluticasone 110 mcg 2 puffs twice daily. 6. Rivaroxaban 15 mg twice daily for 21 days, then begin 20 mg daily. The 15 mg dose was prescribed to [facility] and 20 mg dose sent to [facility] in [place]. 7. Docusate 200 mg twice daily as needed for constipation. 8. Ascorbic acid 500 mg daily. PERTINENT LABORATORY DATA: Hemoglobin on presentation 7.2 and on discharge 8.6 after 1 unit of packed red blood cells. MCV 58, platelets 287,000. Troponin I on presentation peaked at 0.30. BNP 401. PERTINENT IMAGING STUDIES: 1. CTA chest and thorax. Impression: Bilateral multilobar pulmonary embolism extending to the main stem pulmonary artery on the right, widening of the right ventricle in this setting could be secondary to right heart strain. 2. Lower extremity Dopplers. Impression: Acute left-sided tibial deep venous thrombosis. 3. Transthoracic echocardiogram. Impression: Left ventricular chamber size is normal. Mild to moderate concentric left ventricular hypertrophy is observed. There is normal left ventricular asystolic function with an estimated LVEF of 55% to 60%. There is septal flattening of the intraventricular septum consistent with right ventricular volume or pressure overload. Assessment of diastolic function is nondiagnostic. Right atrium is mild to moderately dilated , mild to moderate TR, evidence of moderate pulmonary hypertension, mild pulmonic regurgitation. Mild dilatation of the ascending aorta. HISTORY OF PRESENT ILLNESS AND HOSPITAL COURSE: A 46-year-old female with the past medical history as outlined in the history of present illness on the day of admission including asthma and GERD, presents to the hospital with increased dyspnea on exertion associated with exertional chest pain. She had increasingly underwent some extensive travel including flying to [place]. She was found to have iron-deficiency anemia, she was given 1 unit of packed red blood cells given her dyspnea on exertion. She is a vegan and taking proton pump inhibitor, which in conjnction with decreased iron intake may have increased her difficulty with absorption. She was seen by Hematology during the course of her hospital stay. Recommended Xarelto for 6 months anticoagulation in the setting of acute DVT and PE. She was treated with heparin prior to the initiation of Xarelto prior to discharge. Dr. Deluca has indicated that she will arrange for outpatient IV iron infusions. Additional workup including factor V Leiden, prothrombin G mutation will be checked at a followup visit with Hematology with the rest of the hypercoagulable workup to be performed. After discontinuation of anticoagulation, no other complications during the course of this hospital stay. She was also recommended for age- appropriate cancer screening. It should be noted that she had negative stool occult blood and was recommended that she has additional samples to follow for occult bleeding as an outpatient. At followup please; 1. Please ensure continued resolution of symptoms and adequate administration of Xarelto. 2. The patient requires age-appropriate cancer screening. 3. Follow hemoglobin for resolution of microcytic anemia. 4. Celiac panel was ordered. Please follow up final results. 5. Things to follow up after admission would be additional stool samples to monitor for stool occult bleeding. Reasons to return to the hospital included but not limited to recurrent or worsening symptoms, chest pain, shortness of breath, nausea, vomiting, lightheadedness, loss of consciousness, near loss of consciousness, bleeding from any source, inability to obtain or tolerate medications were discussed with the patient. She acknowledged understanding. Greater than 30 minutes were spent on the discharge of this patient, greater than half was spent [id number] with the patient. [id number]/[facility] #: [id number]
[2017-06-01 19:54] LABS: Tissue Transglutaminase IgA Ab <1.2 U/mL
[2017-06-01 22:01] LABS: Immunoglobulin A 239 mg/dL (61 - 356)
== END 2017-05-31 15:45 | disposition home or self-care (01) | DRG 134 ==
LOC: ED 01:02 → ICU 04:01 → MEDTELE 05-29 14:48
PROVIDERS: ADMIT Hospitalist; ATTEND Internal Medicine
PROC: 30233N1 Transfusion of Nonautologous Red Blood Cells into Peripheral Vein, Percutaneous Approach (ICD-10-PCS; principal; 2017-05-28)
DX: I26.99 Other pulmonary embolism without acute cor pulmonale (principal); J96.01 Acute respiratory failure with hypoxia; I82.402 Acute embolism and thrombosis of unspecified deep veins of left lower extremity; I82.442 Acute embolism and thrombosis of left tibial vein; D50.9 Iron deficiency anemia, unspecified; J45.909 Unspecified asthma, uncomplicated; K21.9 Gastro-esophageal reflux disease without esophagitis; J30.2 Other seasonal allergic rhinitis; R74.8 Abnormal levels of other serum enzymes; Z79.01 Long term (current) use of anticoagulants; I27.20 Pulmonary hypertension, unspecified; I77.819 Aortic ectasia, unspecified site; I07.1 Rheumatic tricuspid insufficiency; Z82.49 Family history of ischemic heart disease and other diseases of the circulatory system; Z88.0 Allergy status to penicillin; Z91.040 Latex allergy status; Z72.89 Other problems related to lifestyle; Z82.3 Family history of stroke; Z84.1 Family history of disorders of kidney and ureter; E66.9 Obesity, unspecified; Z68.38 Body mass index [BMI] 38.0-38.9, adult; R00.0 Tachycardia, unspecified; Z80.3 Family history of malignant neoplasm of breast; E78.5 Hyperlipidemia, unspecified
CPT/HCPCS: 36415; 71010; 71275; 80048; 80053; 80061; 82270; 82550; 82607; 82728; 82746; 82784; 83540; 83550; 83605; 83615; 83735; 83880; 84443; 84484; 84520; 84702; 85014; 85018; 85025; 85027; 85045; 85060; 85379; 85610; 85730; 86850; 86900; 86901; 86922; 87641; 93005; 93306; 93970; 94640; 94760; A9270-GY; J1644; J2930; P9040; Q9967